=== PATIENT | male | born 1955 | race Caucasian/White ===

== ENCOUNTER → 2020-09-21 15:16 | Outpatient (BNVA) | payer MEDICAID, SELFPAY | PROVIDERS: PCP Internal Medicine; Visit Provider Nurse Practitioner Family ==

== ENCOUNTER 2020-10-20 08:48 | Day surgery (SDC) | payer MEDICAID, SELFPAY ==
--- NOTE | 2020-10-19 11:58 | HO.ANESPROP2 ---
Documented by User: Eryn Phillips 10/19/20 11:59 HPI - Anesthesia Eval Consult details Narrative: 65yo M for Colonoscopy PMFSH Past Medical History Medical History Anxiety Diabetes History of kidney stones HTN (hypertension) Family History Family History Father Emphysema lung Mother Lung cancer Surgical History Surgical History History of lithotripsy Hx of colonoscopy Hx of hand surgery Social History Social History Alcohol intake: current Alcohol intake frequency: does not drink Smoking Status: Never smoker Advance Directives: No Advance Directives Information Provided: Yes Meds Allergies Allergy/AdvReac Type Severity Reaction Status Date / Time No Known Allergies Allergy Verified 10/20/20 09:29 Home Medications Medication Instructions Recorded Confirmed Last Taken Type amlodipine 5 mg tablet 5 mg PO DAILY 09/21/20 10/14/20 10/20/20 07:30 History lisinopril 10 1 tab PO DAILY 09/21/20 10/14/20 Unknown History mg-hydrochlorothiazide 12.5 mg tablet simvastatin 10 mg tablet 10 mg PO DAILY 09/21/20 10/14/20 Unknown History Exam Exam Date and Time: October 19, 2020 1158 Height,Weight and Vital Signs: Height 5 ft 11 in Assessment and Plan Assessment Anesthesia Assessment: Chart Reviewed Documented by User: Marissa Jones 10/20/20 10:19 PMFSH Past Medical History Medical History Anxiety Diabetes History of kidney stones HTN (hypertension) Family History Family History Father Emphysema lung Mother Lung cancer Surgical History Surgical History History of lithotripsy Hx of colonoscopy Hx of hand surgery Social History Social History Alcohol intake: current Alcohol intake frequency: does not drink Smoking Status: Never smoker Advance Directives: No Advance Directives Information Provided: Yes Meds Allergies Allergy/AdvReac Type Severity Reaction Status Date / Time No Known Allergies Allergy Verified 10/20/20 09:29 Home Medications Medication Instructions Recorded Confirmed Last Taken Type amlodipine 5 mg tablet 5 mg PO DAILY 09/21/20 10/14/20 10/20/20 07:30 History lisinopril 10 1 tab PO DAILY 09/21/20 10/14/20 Unknown History mg-hydrochlorothiazide 12.5 mg tablet simvastatin 10 mg tablet 10 mg PO DAILY 09/21/20 10/14/20 Unknown History Exam Airway Mallampati Class: II TM Dist: >3cm Loose/Missing/Broken Teeth: No Heart: RRR Lungs: CTA Assessment and Plan Assessment Anesthesia Assessment: Anesthesia Plan Discussed and Chart Reviewed Final Anesthetic Review NPO: Yes ASA Class: II Final Preanesthetic Review: Meds/Allgs Chart Reviewed, Consent Obtained/Reviewed and Anes Risks/Benef Reviewed Patient Risk: Low Procedure Risk: Low Anesthetic Plan Anesthetic Plan: MAC: Disposition: Standard PACU
[2020-10-20 09:43] VITALS: BP 144/71; PULSE 104; RESP 16; TEMP 37; O2SAT 98
[2020-10-20] MEDS: Midazolam HCl/PF 2 MG/2 ML VIAL IVPUSH (09:56)
[2020-10-20] MEDS: Lactated Ringers 1,000 ML 100 ML IVCONT (09:59)
[2020-10-20 10:04] LABS: Glucose, Whole Blood 172 mg/dL (60-115)
--- NOTE | 2020-10-20 10:23 | MHC.SHP ---
Pre-Procedural Eval Section A The patient is an INPATIENT: No Changes since office visit: No Cold of Flu in the past 2 weeks, No New Medical Problems, No Changes in Medication and No Patient answered all questions The History & Physical has been completed within 30 days and I have reviewed it.: Yes Section B Chief Complaint: Screening Allergies: Allergies Allergy/AdvReac Type Severity Reaction Status Date / Time No Known Allergies Allergy Verified 10/20/20 09:29 Plan I have reviewed the history and physical and performed a pertinent physical examination on my patient. No changes have occurred unless specified.
[2020-10-20 10:25] VITALS: BMI 29.7
--- NOTE | 2020-10-20 11:10 | PM.OP ---
Brief Operative Note Date of Service: 10/20/20 Pre-op diagnosis: COLON CANCER SCREENING--LAST EXAM 10YR AGO, [place] RISK Post-op diagnosis: other (ASCENDING COLON POLYP, INFLAMATION OF THE ILEOCECAL VALVE.) Procedure: COLONOSCOPY WITH EXCISIONAL POLYPECTOMY WITH COLD BX FORCEPS, BX OF THE VALVE, RANDOM RIGHT AND LEFT SIDES. Implants: NONE Surgeon: Odette Guevara MD Anesthesia: MAC (MD VICENTE) Estimated blood loss (mL): 10 Pathology: other (POLYP, VALVE, RANDOM RIGHT AND LEFT SIDE --) Condition: stable Disposition: PACU
[2020-10-20 11:12] VITALS: BP 117/72; PULSE 84; RESP 18; TEMP 36.6; O2SAT 98
[2020-10-20 11:27] VITALS: BP 123/64; PULSE 69; RESP 18; O2SAT 95
[2020-10-20 11:42] VITALS: BP 119/76; PULSE 79; RESP 18; TEMP 36.7; O2SAT 97
--- NOTE | 2020-10-20 16:23 | W.PM.OPN ---
Operative Note Operative Note Date of Service: 10/20/20 Narrative: Pre-op diagnosis: COLON CANCER SCREENING--LAST EXAM 10YR AGO, [place] RISK Post-op diagnosis: ASCENDING COLON POLYP, INFLAMATION OF THE ILEOCECAL VALVE. Procedure: COLONOSCOPY WITH EXCISIONAL POLYPECTOMY WITH COLD BX FORCEPS; BX OF THE VALVE; RANDOM RIGHT AND LEFT SIDES. Implants: NONE Surgeon: Odette Guevara MD Anesthesia: MAC (MD VICENTE) FINDINGS: CARYL--PROSTATE NORMAL Adult slim colonoscope introduced without difficulty. It easily advanced into the sigmoid, descending, transverse, ascending colon into the cecum. Appendiceal orifice, ileocecal valve were well seen. Ileocecal valve was friable with small erosive changes. I was unable due to positioning to intubate the ileum. (Bx) were done.) On withdrawal a 2-3mm polyp removed excisionally with cold bx forceps on one of the folds in the ascending colon. No additonal lesions were seen. Prep was good. ARV was clear. Estimated blood loss (mL): 10 Pathology: POLYP, VALVE, RANDOM RIGHT AND LEFT SIDE -- Condition: stable Disposition: PACU + PLAN--Patient should be reseen or have a post procedure TELEVISIT. His repeat screening will be 5 years.
== END 2020-10-20 12:10 | disposition home or self-care (01) ==
PROVIDERS: PCP Internal Medicine; Visit Provider Internal Medicine Gastroenterology
PROC: 0DJD8ZZ Inspection of Lower Intestinal Tract, Via Natural or Artificial Opening Endoscopic (ICD-10-PCS; CPT 45378; principal; 2020-10-20 10:00)
DX: Z12.11 Encounter for screening for malignant neoplasm of colon (principal); D12.2 Benign neoplasm of ascending colon; K52.9 Noninfective gastroenteritis and colitis, unspecified; I10 Essential (primary) hypertension; E11.9 Type 2 diabetes mellitus without complications; Z79.899 Other long term (current) drug therapy; Z87.442 Personal history of urinary calculi
CPT/HCPCS: 45380; 82947; 88305; J2250

== ENCOUNTER → 2020-11-02 13:05 | Outpatient (BNVA) | payer MEDICAID, SELFPAY | PROVIDERS: PCP Internal Medicine; Visit Provider Nurse Practitioner Family ==

== ENCOUNTER 2023-08-16 15:53 | Outpatient (REF) | payer MEDICAID, SELFPAY ==
[2023-08-16 18:20] LABS: Alanine Aminotransferase 21 U/L (0-40); Albumin Level 4.6 g/dL (3.5-5.0); Alkaline Phosphatase 45 U/L (39-117); Anion Gap 15 (12-20); Aspartate Amino Transferase 18 U/L (5-37); Bilirubin Total 0.5 mg/dL (0.0-1.0); Blood Urea Nitrogen 19 mg/dL (9-16); Calcium 9.3 mg/dL (8.4-10.2); Carbon Dioxide 26 mmol/L (22-29); Chloride 103 mmol/L (96-108); Cholesterol 171 mg/dL (<200); Estimated Glomerular Filt Rate > 60; Glucose Random 146 mg/dL (60-115); HDL Cholesterol 49 mg/dL (>40); LDL Cholesterol Calculated 95 mg/dL (<100); Potassium 4.2 mmol/L (3.3-5.1); Sodium 140 mmol/L (135-145); Total Protein 7.9 g/dL (6.5-8.0); Triglycerides 138 mg/dL (<150)
[2023-08-16 18:39] LABS: Creatinine Urine 197.54 mg/dL; Microalbum/Creatinine Ratio Ur 6.5 ug/mg cr (<30)
[2023-08-16 19:04] LABS: TSH reflex Free T4 0.49 uIU/mL (0.32-4.0)
== END 2023-08-16 15:54 | disposition home or self-care (01) ==
LOC: HO.CHCLDS 15:53
PROVIDERS: Visit Provider Internal Medicine
DX: I10 Essential (primary) hypertension (principal); E11.9 Type 2 diabetes mellitus without complications
CPT/HCPCS: 36415; 80053; 80061; 82043; 82570; 84443

== ENCOUNTER 2024-12-09 10:50 | Outpatient (REF) | payer MEDICAID, SELFPAY ==
--- OUTSIDE RECORDS SUMMARY | 2024-12-09 12:01 | XMS_ITS | Encounter Summary ---
Author Organization [facility] Address [address] [place] [address] [address] [place] [address] Care Team Providers Care Records Associate Name Role Phone Jacy Treadwell MD Primary Care Provider [phone] Encounter Details Date Type Department Care Team (Latest Contact Info) Description 06/19/2020 Abstract [facility] CONVERSIONS Dental, Provider, DDS Social History Tobacco Use Types Packs/Day Years Used Date Smoking Tobacco: Never Assessed Sex and Gender Information Value Date Recorded Sex Assigned at Male 05/09/2022 10:14 AM EDT Legal Sex Male 10:14 AM EDT Gender Identity Male 05/09/2022 10:14 AM EDT Sexual Orientation Straight 05/09/2022 10 :14 AM EDT documented as of this encounter Plan of Treatment Upcoming Encounters Date Type Department Care Team (Late st Contact Info) Description 02/11/2025 1:00 PM EDT Office Visit [facility] OPTOMETRY [address] [place] [address] TarMaddie gonzalez, OD [address] [place] [address] 04/09/2025 2:00 PM EDT Office Visit [facility]AL [address] [place] [address] Terrance Treadwell documented as of this encounter Visit Diagnoses Not on filedocumented in this encounter Care Teams Records Associate Relationship Specialty Start Date End Date Jacy Treadwell MD [address] [place] [address] PCP - General Internal Medicine 07/10/18 documented as of this encounter
[2024-12-09 14:19] LABS: MANUAL DIFF FLAG NO
[2024-12-09 14:30] LABS: Eosinophils Absolute Auto 0.1 X10*3/uL (0.0-0.4); Eosinophils Percent Auto 3.1 % (0-4); Hematocrit 41.2 % (42.0-52.0); Hemoglobin 13.7 g/dl (14.0-18.0); Imm Gran Abs Auto 0.01 X10*3/uL (0.00-0.03); Imm Gran Pct Auto 0.3 % (0.0-0.4); Lymphocytes Absolute Auto 1.4 X10*3/uL (1.2-4.9); Lymphocytes Percent Auto 35.7 % (20-40); Mean Corpuscular HGB Conc 33.3 g/dl (31.0-36.0); Mean Corpuscular Hemoglobin 30.4 pg (27.0-33.0); Mean Corpuscular Volume 91.4 fL (80.0-98.0); Monocytes Absolute Auto 0.3 X10*3/uL (0.1-1.2); Monocytes Percent Auto 6.8 % (2-11); Neutrophils Percent Auto 53.1 % (45-73); Platelet Count 107 X10*3/uL (160-400); Red Blood Count 4.51 X10*6/uL (4.60-5.80); Red Cell Distribution Width 13.4 % (11.0-16.0); White Blood Count 3.8 X10*3/uL (4.8-10.8)
[2024-12-09 14:45] LABS: Alanine Aminotransferase 21 U/L (0-40); Albumin Level 4.1 g/dL (3.5-5.0); Alkaline Phosphatase 43 U/L (39-117); Anion Gap 10 (12-20); Aspartate Amino Transferase 22 U/L (5-37); Bilirubin Total 0.4 mg/dL (0.0-1.0); Blood Urea Nitrogen 12 mg/dL (9-16); Calcium 8.9 mg/dL (8.4-10.2); Carbon Dioxide 27 mmol/L (22-29); Chloride 109 mmol/L (96-108); Cholesterol 159 mg/dL (<200); Estimated Glomerular Filt Rate > 60; Glucose Random 164 mg/dL (60-115); HDL Cholesterol 47 mg/dL (>40); LDL Cholesterol Calculated 85 mg/dL (<100); Potassium 4.3 mmol/L (3.3-5.1); Sodium 142 mmol/L (135-145); Total Protein 6.7 g/dL (6.5-8.0); Triglycerides 138 mg/dL (<150)
[2024-12-09 15:00] LABS: TSH reflex Free T4 0.49 uIU/mL (0.32-4.0)
== END 2024-12-09 10:51 | disposition home or self-care (01) ==
LOC: HO.CHCLDS 10:50
PROVIDERS: Visit Provider Internal Medicine
DX: I10 Essential (primary) hypertension (principal); E11.9 Type 2 diabetes mellitus without complications; D64.9 Anemia, unspecified
CPT/HCPCS: 36415; 80053; 80061; 82043; 82570; 84443; 85025